=== PATIENT | male | born 1950 | race Caucasian/White ===

== ENCOUNTER → 2016-08-26 | Emergency (ER) | payer BC, OTHER ==
[2016-08-26 10:47] VITALS: BMI 40.6
--- NOTE | 2016-08-26 10:48 | PDOC ---
History of Present Illness - History of Present Illness Initial Comments: 08/26/16 11:09 The patient is a 66 year old male, with a significant past medical history hypertension (controlled), who presents to the emergency department with chest pain for the past few hours today. He states his pain is midsternal, 2/10 in severity, worse when sitting down, and slightly alleviated with standing. He states he can palpate his midsternal region and reproduce pain. He denies ever having a stress test or cardiac work-up in the past. He denies shortness of breath, headache and dizziness. He denies fever, chills, nausea, vomit, diarrhea and constipation. He denies dysuria, frequency, urgency and hematuria. Allergies: NKDA PCP - Dr. Pacheco <Mary Bobo - Last Filed: 08/26/16 12:32> <Cornelio Perera - Last Filed: 08/26/16 12:48> - General Chief Complaint: Chest Pain Stated Complaint: CHEST PAIN Time Seen by Provider: 08/26/16 10:48 Past History <Mary Bobo - Last Filed: 08/26/16 12:32> - Past Medical History Anemia: No Asthma: No Cancer: No Cardiac Disorders: No CVA: No COPD: No CHF: No Dementia: No Diabetes: No GI Disorders: No Disorders: No HTN: Yes Hypercholesterolemia: No Liver Disease: No Seizures: No Thyroid Disease: No - Surgical History Abdominal Surgery: Yes (hernia repair) Appendectomy: No Cardiac Surgery: No Cholecystectomy: No Lung Surgery: No Neurologic Surgery: No Orthopedic Surgery: No - Psycho/Social/Smoking Cessation Hx Anxiety: No Suicidal Ideation: No Smoking Status: No Smoking History: Former smoker Have you smoked in the past 12 months: No Number of Cigarettes Smoked Daily: 0 If you are a former smoker, when did you quit?: 20YRS Information on smoking cessation initiated: No Hx Alcohol Use: No Drug/Substance Use Hx: No Substance Use Type: None <Cornelio Perera - Last Filed: 08/26/16 12:48> - Past Medical History Allergies/Adverse Reactions: Allergies Allergy/AdvReac Type Severity Reaction Status Date / Time No Known Allergies Allergy Verified 08/26/16 10:44 Home Medications: Ambulatory Orders Aspirin [ASA -] 162 mg PO DAILY 01/07/12 Olmesartan Medoxomil [Benicar] 2.5 mg PO DAILY 01/07/12 Review of Systems - Review of Systems Able to Perform ROS?: Yes Comments:: 08/26/16 11:10 GENERAL/CONSTITUTIONAL: No fever or chills. No weakness. HEAD, EYES, EARS, NOSE AND THROAT: No change in vision. No ear pain or discharge. No sore throat. CARDIOVASCULAR: (+) chest pain. No shortness of breath. RESPIRATORY: No cough, wheezing, or hemoptysis. GASTROINTESTINAL: No nausea, vomiting, diarrhea or constipation. GENITOURINARY: No dysuria, frequency, or change in urination. MUSCULOSKELETAL: No joint or muscle swelling or pain. No neck or back pain. SKIN: No rash NEUROLOGIC: No headache, vertigo, loss of consciousness, or change in strength/ sensation. ENDOCRINE: No increased thirst. No abnormal weight change. HEMATOLOGIC/LYMPHATIC: No anemia, easy bleeding, or history of blood clots. ALLERGIC/IMMUNOLOGIC: No hives or skin allergy. <Mary Bobo - Last Filed: 08/26/16 12:32> *Physical Exam - Vital Signs Last Vital Signs Temp Pulse Resp BP Pulse Ox 98.1 F 86 19 164/98 100 08/26/16 10:44 08/26/16 10:44 08/26/16 10:44 08/26/16 10:44 08/26/16 10:44 - Physical Exam Comments: 08/26/16 11:10 GENERAL: Obese. Awake, alert, and fully oriented, in no acute distress HEAD: No signs of trauma EYES: PERRLA, EOMI, sclera anicteric, conjunctiva clear ENT: Auricles normal inspection, hearing grossly normal, nares patent, oropharynx clear without exudates. Moist mucosa NECK: Normal ROM, supple, no lymphadenopathy, JVD, or masses LUNGS: Breath sounds equal, clear to auscultation bilaterally. No wheezes, and no crackles HEART: Regular rate and rhythm, normal S1 and S2, no murmurs, rubs or gallops ABDOMEN: Soft, nontender, normoactive bowel sounds. No guarding, no rebound. No masses EXTREMITIES: Normal range of motion, no edema. No clubbing or cyanosis. No cords, erythema, or tenderness NEUROLOGICAL: Cranial nerves II through XII grossly intact. Normal speech, normal gait SKIN: Warm, Dry, normal turgor, no rashes or lesions noted. <Mary Bobo - Last Filed: 08/26/16 12:32> - Vital Signs Last Vital Signs Temp Pulse Resp BP Pulse Ox 98.1 F 86 19 164/98 100 08/26/16 10:44 08/26/16 10:44 08/26/16 10:44 08/26/16 10:44 08/26/16 10:44 <Cornelio Perera - Last Filed: 08/26/16 12:48> ED Treatment Course - LABORATORY CBC & Chemistry Diagram: 08/26/16 11:18 08/26/16 11:18 <Mary Bobo - Last Filed: 08/26/16 12:32> - LABORATORY CBC & Chemistry Diagram: 08/26/16 11:18 08/26/16 11:18 <Cornelio Perera - Last Filed: 08/26/16 12:48> Medical Decision Making - Medical Decision Making 08/26/16 11:10 The patient is a 66 year old male who presents with midsternal chest pain, 2/10 in severity, constant and nonradiating for the past few hours today. The patients medical history is significant for hypertension. I will obtain CBC, cmp, cardiac profile, CXR to rule out angina 08/26/16 12:10 Dr. Pacheco was called at the office and the patient's case was discussed. He would like the patient to follow-up as outpatient with referral to Dr. Resendiz for cardiology stress test. 08/26/16 12:27 Dr. Resendiz was called at the office and I was informed that Dr. Triana is in the hospital at this time. I have paged Dr. Triana overhead. Dr. Triana immediately returned our page at 12:30 and the patient's case was discussed. I will give the patient the number for outpatient stress test scheduling ). <Mary Bobo - Last Filed: 08/26/16 12:32> *DC/Admit/Observation/Transfer - Attestations Scribe Attestion: 08/26/16 11:10 Documentation prepared by Mayr Bobo, acting as medical orderly for Cornelio Perera MD <Mary Bobo - Last Filed: 08/26/16 12:32> - Discharge Dispostion Admit: No - Attestations Physician Attestion: 08/26/16 10:48 I, Dr. Cornelio Perear, attest that this document has been prepared under my direction and personally reviewed by me in its entirety. I further attest, that it accurately reflects all work, treatment, procedures and medical decision -making performed by me. <Cornelio Perera - Last Filed: 08/26/16 12:48> Diagnosis at time of Disposition: Atypical chest pain - Discharge Dispostion Disposition: HOME Condition at time of disposition: Good - Referrals Referrals: David Pacheco MD [Primary Care Provider] - - Patient Instructions Printed Discharge Instructions: DI for Atypical Chest Pain Additional Instructions: Mr Pierson- Call [phone], they are expecting you to call to set you up for an outpatient stress this week. (This is [facility]) Return to us if any problems. Best- Dr. Cornelio Perera
[2016-08-26 11:26] LABS: BASOPHIL 1.1 % (0-2.0); EOSINOPHIL 4.1 % (0-4.5); MCH 29.6 pg (25.7-33.7); MCHC 33.3 g/dl (32.0-35.9); MEAN PLT VOLUME 9.5 fl (7.5-11.1); NEUTROPHILS 64.2 % (42.8-82.8); PLATELET COUNT 220 K/MM3 (134-434); RDW 14.2 % (11.9-15.9); WHITE BLOOD COUNT 8.9 K/mm3 (4.0-10.0)
[2016-08-26 11:59] LABS: ALBUMIN 3.8 g/dl (3.4-5.0); ANION GAP 9 (8-16); BILIRUBIN,TOTAL 0.5 mg/dL (0.2-1.0); CALCIUM 8.3 mg/dL (8.5-10.1); CO2 27 mmol/L (21-32); CREATININE 0.9 mg/dL (0.7-1.3); GLUCOSE,RANDOM 99 mg/dL (74-106); SGPT/ALT 30 U/L (12-78); TOT PROT 6.8 g/dl (6.4-8.2)
[2016-08-26 12:01] LABS: ALK PHOS 66 U/L (45-117); TROPONIN I < 0.02 ng/ml (0.00-0.05)
[2016-08-26 12:05] LABS: SGOT/AST 21 U/L (15-37)
--- NOTE | 2016-08-26 12:30 | EKG ---
Test Reason : Blood Pressure : / mmHG Vent. Rate : 089 BPM Atrial Rate : 089 BPM P-R Int : 174 ms QRS Dur : 096 ms QT Int : 380 ms P-R-T Axes : 047 -04 046 degrees QTc Int : 462 ms NORMAL SINUS RHYTHM POSSIBLE LEFT ATRIAL ENLARGEMENT BORDERLINE ECG NO PREVIOUS ECGS AVAILABLE Confirmed by ARAM WALLACE, EMILIE ([id number]) on 08/26/2016 12:29:56 PM Referred By: Confirmed By:EMILIE CHIU MD
[2016-08-26 13:05] VITALS: BP 134/80; PULSE 80; TEMP 98.3
== END | disposition home or self-care (01) ==
LOC: JER 10:41
DX: R07.89 Other chest pain (principal); I10 Essential (primary) hypertension
CPT/HCPCS: 36415; 71010-TC; 80053; 82550; 82553; 84484; 85025; 93005; 93010; 99283-25

== ENCOUNTER 2017-04-28 07:34 | Day surgery (SDC) | payer OTHER ==
[2017-04-25 10:45] VITALS: BMI 40.0
[2017-04-28] MEDS ORDERED: LIDOCAINE HCL/PF 2% SDV 5ML VIAL ONE (07:41)
[2017-04-28] MEDS ORDERED: PROPOFOL 20 ML ONE ×2 (07:41)
[2017-04-28 09:06] VITALS: TEMP 97.6
[2017-04-28 09:29] VITALS: BP 110/74; PULSE 76
--- NOTE | 2017-04-29 15:17 | PATH ---
Surgical Pathology Report Patient Name: JOHNNA MEIER [facility]. Rec. #: [id number] /Age/Gender: 1950 (Age: 67) / M Account: [id number] Location: [facility]-ENDOSCOPY Taken: 04/28/2017 Received: 04/28/2017 Reported: 04/29/2017 Physicians: David Yanes M.D. Specimen(s) Received A: BX 35CM COLON B: BX RECTO SIGMOID Clinical History Preoperative diagnosis: History of polyps Postoperative diagnosis: Polyps Final Diagnosis A. COLON, 35 CM, BIOPSY: TUBULAR ADENOMA. B. RECTOSIGMOID COLON, BIOPSY: HYPERPLASTIC POLYP. Electronically Signed Annabel Quintanilla M.D. Gross Description A. Received in formalin, labeled "35 cm" are 2 burrows, polypoid portions of soft tissue measuring 0.5 and 0.8 cm. in greatest dimension. The specimens are submitted in toto in one cassette. B. Received in formalin, labeled "rectosigmoid" is a burrows, irregular portion of soft tissue measuring 0.3 cm. in greatest dimension. The specimen is submitted in toto in one cassette. DL/04/28/2017 saudi04/28/2017
== END 2017-04-28 09:25 | disposition home or self-care (01) ==
LOC: FASU-ENDO 07:34
PROVIDERS: ATTEND Internal Medicine Gastroenterology
PROC: 0DBN8ZX Excision of Sigmoid Colon, Via Natural or Artificial Opening Endoscopic, Diagnostic (ICD-10-PCS; principal; 2017-04-28 08:35)
PROC: 0DBN8ZX Excision of Sigmoid Colon, Via Natural or Artificial Opening Endoscopic, Diagnostic (ICD-10-PCS; 2017-04-28 08:35)
DX: Z86.010 Personal history of colon polyps (principal); D12.5 Benign neoplasm of sigmoid colon; K63.5 Polyp of colon; K57.30 Diverticulosis of large intestine without perforation or abscess without bleeding
CPT/HCPCS: 88305-TC

== ENCOUNTER 2017-11-12 05:11 | Emergency (ER) | payer OTHER ==
--- NOTE | 2017-11-12 05:26 | PDOC ---
History of Present Illness - History of Present Illness Initial Comments: 11/12/17 05:40 67M with PMHx HTN, ex-smoker p/w cc of epigastric pain which he awoke with this morning approx 4hrs prior to arrival. +nausea and feeling occasionally diaphoretic. No true chest pain, no SOB. Does not recall similar pain in the past. Was seen in 2017 for CP, saw outpt cards after the visit and had a neg stress test, per pt. Ate an hebrew sub with milk before bed, does not usually drink milk. No diarrhea, no vomiting. No fever/chills. <Tayler Sanford - Last Filed: 11/12/17 06:20> <Brandon Krueger - Last Filed: 11/12/17 10:44> - General Chief Complaint: Chest Pain Stated Complaint: CHEST PAIN,BLOATING Time Seen by Provider: 11/12/17 05:26 Past History - Past Medical History Anemia: No Asthma: No Cancer: No Cardiac Disorders: No CVA: No COPD: No CHF: No Dementia: No Diabetes: No GI Disorders: No Disorders: No HTN: Yes Hypercholesterolemia: No Liver Disease: No Seizures: No Thyroid Disease: No - Surgical History Abdominal Surgery: Yes (hernia repair) Appendectomy: No Cardiac Surgery: No Cholecystectomy: No Lung Surgery: No Neurologic Surgery: No Orthopedic Surgery: No - Suicide/Smoking/Psychosocial Hx Smoking Status: No Smoking History: Former smoker Have you smoked in the past 12 months: No Number of Cigarettes Smoked Daily: 0 If you are a former smoker, when did you quit?: 1996 Hx Alcohol Use: Yes (SOCIAL) Drug/Substance Use Hx: No Substance Use Type: None Hx Substance Use Treatment: No <Tayler Sanford - Last Filed: 11/12/17 06:20> <Brandon Krueger - Last Filed: 11/12/17 10:44> - Past Medical History Allergies/Adverse Reactions: Allergies Allergy/AdvReac Type Severity Reaction Status Date / Time No Known Allergies Allergy Verified 11/12/17 05:18 Home Medications: Ambulatory Orders Aspirin [ASA -] 162 mg PO DAILY 01/07/12 Olmesartan Medoxomil [Benicar] 2.5 mg PO DAILY 01/07/12 Pantoprazole Sodium 40 mg PO DAILY #10 tablet. 11/12/17 *Physical Exam - Physical Exam Comments: 11/12/17 05:42 Gen: middle aged man in NAD, sitting on stretcher Clear lungs RRR, s1s2 Abd: +tnd to epigastrum and RUQ, no guarding/rebound Chest wall:no reproducible CP LE: 1+ pitting edema bilat, no LE tnd to palpation No rash AOx3, alert, pleasant, no focal neuro deficits <Tayler Sanford - Last Filed: 11/12/17 06:20> - Vital Signs Last Vital Signs Temp Pulse Resp BP Pulse Ox 97.9 F 73 18 158/92 99 11/12/17 05:21 11/12/17 05:21 11/12/17 05:21 11/12/17 05:21 11/12/17 05:21 <Brandon Krueger - Last Filed: 11/12/17 10:44> ED Treatment Course - LABORATORY CBC & Chemistry Diagram: 11/12/17 05:40 11/12/17 05:40 <Tayler Sanford - Last Filed: 11/12/17 06:20> - LABORATORY CBC & Chemistry Diagram: 11/12/17 05:40 11/12/17 05:40 - ADDITIONAL ORDERS Additional order review: Laboratory Results 11/12/17 11/12/17 05:40 05:40 Sodium 137 Potassium 4.2 Chloride 101 Carbon Dioxide 24 Anion Gap 12 BUN 17 D Creatinine 1.0 Creat Clearance w eGFR > 60 Random Glucose 141 H D Calcium 8.7 Total Bilirubin 0.4 AST 22 ALT 35 Alkaline Phosphatase 68 Creatine Kinase 273 Cancelled Troponin I < 0.02 B-Natriuretic Peptide 95.44 Total Protein 7.5 Albumin 4.0 Lipase 160 11/12/17 05:40 RBC 4.61 MCV 90.3 MCHC 34.1 RDW 14.0 MPV 9.1 Neutrophils % 76.9 Lymphocytes % 13.2 Monocytes % 7.1 Eosinophils % 2.4 Basophils % 0.4 - Medications Given in the ED: ED Medications Discontinued Medications Generic Name Dose Route Start Last Admin Trade Name Freq PRN Reason Stop Dose Admin Acetaminophen 975 mg 11/12/17 06:02 11/12/17 06:13 Tylenol - PO 11/12/17 06:03 Not Given ONCE ONE Acetaminophen 1,000 mg 11/12/17 06:12 11/12/17 06:13 Ofirmev Injection - IVPB 11/12/17 06:13 1,000 mg ONCE ONE Administration Al Hydroxide/Mg Hydroxide 30 ml 11/12/17 05:39 11/12/17 05:48 Mylanta Oral Suspension - PO 11/12/17 05:40 30 ml ONCE ONE Administration Aspirin 162 mg 11/12/17 05:39 11/12/17 05:48 Asa - PO 11/12/17 05:40 162 mg ONCE ONE Administration Famotidine/Sodium Chloride 20 mg in 50 mls @ 100 mls/hr 11/12/17 05:39 05:48 Pepcid 20 Mg Premixed Ivpb - IVPB 11/12/17 06:08 100 mls/hr ONCE ONE Administration Morphine Sulfate 4 mg 11/12/17 06:41 11/12/17 06:55 Morphine Sulfate IVPUSH 11/12/17 06:42 4 mg Q4H ONE Administration Ondansetron HCl 4 mg 11/12/17 05:55 11/12/17 06:00 Zofran Injection IVPUSH 11/12/17 05:56 4 mg ONCE ONE Administration <Brandon Krueger - Last Filed: 11/12/17 10:44> Medical Decision Making - Medical Decision Making 11/12/17 05:46 67M with epigastric/RUQ pain with associated nausea and diaphoresis, onset 4hrs prior to arrival. Ddx includes ACS, pancreatitis, gastritis, cholecystitis, LL pna. - labs including cardiac enzymes - EKG - CXR - asa, pepcid, maalox - reassess 11/12/17 06:20 Pt tender in RUQ, unable to obtain clear views of gallbladder with bedside US. Pt reports hx of a large liver cyst and hx of gallstones. I do visualize a hypoechoic structure near the liver, but unclear based on US view whether this is a cyst. Official abd US - RUQ and aorta - ordered, called tech at 6am. <Tayler Sanford - Last Filed: 11/12/17 06:20> *DC/Admit/Observation/Transfer <Tayler Sanford - Last Filed: 11/12/17 06:20> <Brandon Krueger - Last Filed: 11/12/17 10:44> Diagnosis at time of Disposition: GERD (gastroesophageal reflux disease) - Discharge Dispostion Disposition: HOME Condition at time of disposition: Improved - Prescriptions Prescriptions: Pantoprazole Sodium 40 mg PO DAILY #10 tablet.dr - Referrals Referrals: David Yanes MD [Staff Physician] - 1 week - Patient Instructions Printed Discharge Instructions: DI for Gastroesophageal Reflux Disease (GERD) Additional Instructions: Avoid eating for several hours before going to bed Medication for 1 week as directed Consider consultation with [facility] reactor operator head Dr. Yanes if symptoms recur If symptoms worsen severe or other additional symptoms develop, return to ER for further evaluation and treatment. - Post Discharge Activity
[2017-11-12 05:30] VITALS: BMI 40.0
[2017-11-12] MEDS ORDERED: FAMOTIDINE 20 MG/50 ML IVPB 20 MG/50 ML MG IVPB ONE ×2 (05:39→05:43)
[2017-11-12] MEDS ORDERED: ASPIRIN 81 MG CHEWABLE TABLETS PO ONE (05:39)
[2017-11-12] MEDS ORDERED: MAG HYDROX/AL HYDROX/SIMETH 30 ML UNIT-DOSE CUP PO ONE (05:39)
[2017-11-12] MEDS ORDERED: ASPIRIN 81 MG CHEWABLE TABLETS ONE (05:43)
[2017-11-12] MEDS ORDERED: MAG HYDROX/AL HYDROX/SIMETH 30 ML UNIT-DOSE CUP ONE (05:43)
[2017-11-12] MEDS ORDERED: ONDANSETRON 4 MG/2 ML VIAL IVPUSH ONE (05:55)
[2017-11-12] MEDS ORDERED: ONDANSETRON 4 MG/2 ML VIAL ONE (05:56)
[2017-11-12] MEDS ORDERED: ACETAMINOPHEN 325 MG TABLET (FP) PO ONE (06:02)
[2017-11-12] MEDS ORDERED: ACETAMINOPHEN INJECTION 100 ML IVPB ONE (06:09)
[2017-11-12] MEDS ORDERED: ACETAMINOPHEN 1000 MG/100 ML VIAL (NON FORMULARY) IVPB ONE (06:12)
[2017-11-12 06:24] LABS: HEMATOCRIT 41.6 % (35.4-49); HEMOGLOBIN 14.2 GM/dl (11.7-16.9); MEAN CELL VOLUME 90.3 fl (80-96); RBC 4.61 M/mm3 (4.00-5.60); WHITE BLOOD COUNT 10.7 K/mm3 (4.0-10.8)
[2017-11-12 06:25] LABS: BASO % 0.4 % (0-2.0); EOS % 2.4 % (0-4.5); LYMPH % 13.2 % (8-40); MCH 30.8 pg (25.7-33.7); MCHC 34.1 g/dl (32.0-35.9); MEAN PLT VOLUME 9.1 fl (7.5-11.1); MONO % 7.1 % (3.8-10.2); NEUT % 76.9 % (42.8-82.8); PLATELET COUNT 264 K/MM3 (134-434)
[2017-11-12] MEDS ORDERED: morphine SULFATE 4 MG/ML VIAL IVPUSH ONE (06:41)
[2017-11-12] MEDS ORDERED: morphine SULFATE 4 MG/ML VIAL ONE (06:43)
[2017-11-12 06:44] LABS: ANION GAP 12 (8-16); BLOOD UREA NITROGEN 17 mg/dL (7-18); CALCIUM 8.7 mg/dL (8.5-10.1); CHLORIDE 101 mmol/L (98-107); CO2 24 mmol/L (21-32); GLUCOSE,RANDOM 141 mg/dL (74-106); LIPASE 160 U/L (73-393); POTASSIUM 4.2 mmol/L (3.5-5.1); SGOT/AST 22 U/L (15-37); SGPT/ALT 35 U/L (12-78); SODIUM 137 mmol/L (136-145)
[2017-11-12 06:48] LABS: ALK PHOS 68 U/L (45-117); BILIRUBIN,TOTAL 0.4 mg/dL (0.2-1.0); N-TERMINAL BNP 95.44 pg/ml (5-125); TOT PROT 7.5 g/dl (6.4-8.2)
[2017-11-12] MEDS ORDERED: PANTOPRAZOLE SODIUM 40 MG in SODIUM CHLORIDE 100 ML IVPB ONE (07:52)
[2017-11-12] MEDS ORDERED: PANTOPRAZOLE SODIUM 40 MG VIAL ONE (07:55)
--- NOTE | 2017-11-12 08:12 | PDOC ---
*Physical Exam - Vital Signs Last Vital Signs Temp Pulse Resp BP Pulse Ox 97.9 F 73 18 158/92 99 11/12/17 05:21 11/12/17 05:21 11/12/17 05:21 11/12/17 05:21 11/12/17 05:21 - Physical Exam Comments: 11/12/17 08:05 Old EKG was retrieved and is dated 08/26/2016. The EKG is essentially unchanged except for the solitary PVC noted in the new tracing. The patient reportedly had a stress test within the year and it was negative. This makes a cardiac origin but less likely. Ultrasound shows dilated gallbladder with stones, which has been present for some time. The patient has absolutely no right upper quadrant tenderness to palpation and negative Zimmerman sign. Also, there is no obvious sign of inflammation on the ultrasound. Therefore cholecystitis is unlikely The patient describes the pain as primarily epigastric, sharp, but does not radiate through to the back. It occurred at 2 AM after he had been lying down for some time. There is a burning quality to the pain, and originally there was the sensation that he needed to belch, and this might relieve the pain. However , there was no real nausea. At present, the pain is much improved. The only present sensation as the epigastric burning and fullness. Primary consideration must be severe dyspepsia or GERD. The patient received Pepcid and oral antacids. Trial of Protonix now. Further observation. 11/12/17 10:08 Discomfort is completely resolved after Protonix. Patient is ambulatory in no pain or other distress. Repeat EKG and enzymes negative. Treatment for dyspepsia /GERD and follow-up if symptoms persist or worsen. Cardiac symptoms were again reviewed with the patient and instructed to return to ER if any sign of heart symptoms. He appears to agree and understand. ED Treatment Course - LABORATORY CBC & Chemistry Diagram: 11/12/17 05:40 11/12/17 05:40 - ADDITIONAL ORDERS Additional order review: Laboratory Results 11/12/17 11/12/17 05:40 05:40 Sodium 137 Potassium 4.2 Chloride 101 Carbon Dioxide 24 Anion Gap 12 BUN 17 D Creatinine 1.0 Creat Clearance w eGFR > 60 Random Glucose 141 H D Calcium 8.7 Total Bilirubin 0.4 AST 22 ALT 35 Alkaline Phosphatase 68 Creatine Kinase 273 Cancelled Troponin I < 0.02 B-Natriuretic Peptide 95.44 Total Protein 7.5 Albumin 4.0 Lipase 160 11/12/17 05:40 RBC 4.61 MCV 90.3 MCHC 34.1 RDW 14.0 MPV 9.1 Neutrophils % 76.9 Lymphocytes % 13.2 Monocytes % 7.1 Eosinophils % 2.4 Basophils % 0.4 - Medications Given in the ED: ED Medications Discontinued Medications Generic Name Dose Route Start Last Admin Trade Name Blanca PRN Reason Stop Dose Admin Acetaminophen 975 mg 11/12/17 06:02 11/12/17 06:13 Tylenol - PO 11/12/17 06:03 Not Given ONCE ONE Acetaminophen 1,000 mg 11/12/17 06:12 11/12/17 06:13 Ofirmev Injection - IVPB 11/12/17 06:13 1,000 mg ONCE ONE Administration Al Hydroxide/Mg Hydroxide 30 ml 11/12/17 05:39 11/12/17 05:48 Mylanta Oral Suspension - PO 11/12/17 05:40 30 ml ONCE ONE Administration Aspirin 162 mg 11/12/17 05:39 11/12/17 05:48 Asa - PO 11/12/17 05:40 162 mg ONCE ONE Administration Famotidine/Sodium Chloride 20 mg in 50 mls @ 100 mls/hr 11/12/17 05:39 05:48 Pepcid 20 Mg Premixed Ivpb - IVPB 11/12/17 06:08 100 mls/hr ONCE ONE Administration Morphine Sulfate 4 mg 11/12/17 06:41 11/12/17 06:55 Morphine Sulfate IVPUSH 11/12/17 06:42 4 mg Q4H ONE Administration Ondansetron HCl 4 mg 11/12/17 05:55 11/12/17 06:00 Zofran Injection IVPUSH 11/12/17 05:56 4 mg ONCE ONE Administration *DC/Admit/Observation/Transfer Diagnosis at time of Disposition: GERD (gastroesophageal reflux disease) Qualifiers: Esophagitis presence: without esophagitis Qualified Code(s): K21.9 - Gastro- esophageal reflux disease without esophagitis - Discharge Dispostion Disposition: HOME Condition at time of disposition: Improved Decision to Admit order: No - Prescriptions Prescriptions: Pantoprazole Sodium 40 mg PO DAILY #10 tablet.dr - Referrals Referrals: David Yanes MD [Staff Physician] - 1 week - Patient Instructions Printed Discharge Instructions: DI for Gastroesophageal Reflux Disease (GERD) Additional Instructions: Avoid eating for several hours before going to bed Medication for 1 week as directed Consider consultation with bronze chaser Dr. Yanes if symptoms recur If symptoms worsen severe or other additional symptoms develop, return to ER for further evaluation and treatment. - Post Discharge Activity
[2017-11-12 09:31] VITALS: BP 149/82; PULSE 70; TEMP 98.7
--- NOTE | 2017-11-13 11:14 | EKG ---
Test Reason : Blood Pressure : / mmHG Vent. Rate : 069 BPM Atrial Rate : 069 BPM P-R Int : 164 ms QRS Dur : 098 ms QT Int : 410 ms P-R-T Axes : 010 -02 044 degrees QTc Int : 439 ms NORMAL SINUS RHYTHM INFERIOR INFARCT , AGE UNDETERMINED ABNORMAL ECG WHEN COMPARED WITH ECG OF 12-NOV-2017 05:27, PREMATURE VENTRICULAR COMPLEXES ARE NO LONGER PRESENT INFERIOR INFARCT IS NOW PRESENT Confirmed by BETHANIE WALLACE, ELHAM ([id number]) on 11/13/2017 11:13:42 AM Referred By: OBDULIO RYAN Confirmed By:ELHAM KOVACS MD
--- NOTE | 2017-11-15 17:49 | EKG ---
Test Reason : Blood Pressure : / mmHG Vent. Rate : 072 BPM Atrial Rate : 072 BPM P-R Int : 154 ms QRS Dur : 100 ms QT Int : 426 ms P-R-T Axes : 000 -05 041 degrees QTc Int : 466 ms SINUS RHYTHM WITH OCCASIONAL PREMATURE VENTRICULAR COMPLEXES NONSPECIFIC ST ABNORMALITY ABNORMAL ECG WHEN COMPARED WITH ECG OF 26-AUG-2016 10:50, PREMATURE VENTRICULAR COMPLEXES ARE NOW PRESENT Confirmed by JOCELYN WALLACE, MAX ([id number]) on 11/15/2017 5:49:07 PM Referred By: MD STONE Confirmed By:MAX BANKS MD
== END 2017-11-12 10:17 | disposition home or self-care (01) ==
LOC: FER 05:11
PROC: 3E033NZ Introduction of Analgesics, Hypnotics, Sedatives into Peripheral Vein, Percutaneous Approach (ICD-10-PCS; principal; 2017-11-12)
PROC: 3E033GC Introduction of Other Therapeutic Substance into Peripheral Vein, Percutaneous Approach (ICD-10-PCS; 2017-11-12)
DX: K21.9 Gastro-esophageal reflux disease without esophagitis (principal); Z87.891 Personal history of nicotine dependence; I10 Essential (primary) hypertension
CPT/HCPCS: 36415; 71045-TC-FY; 76705-TC; 76775-TC; 80053; 82550; 82553; 83690; 83880; 84484; 85025; 93005; 99283-25; J0131

== ENCOUNTER 2019-08-29 05:50 | Emergency (ER) | payer OTHER, BC ==
[2019-08-29 05:57] VITALS: BP 124/62; PULSE 77; TEMP 98; BMI 35.9
--- NOTE | 2019-08-29 05:57 | PDOC ---
History of Present Illness - General Chief Complaint: Chest Pain Stated Complaint: CHEST PAIN Time Seen by Provider: 08/29/19 05:54 - History of Present Illness Initial Comments: 08/29/19 06:15 This 69-year-old man with a history of HTN/GERD presents with several hour history of burning epigastric pain, followed by mild substernal chest discomfort for the last hour. Patient had mild nausea associated with the burning pain; na usea has resolved. No shortness of breath, arm/jaw pain, diaphoresis. Patient was comfortable when he was about to go to sleep but began to feel discomfort when lying down. Within an hour, he had significant dyspepsia; at that point, he took an OTC "heartburn pill" (patient unsure of identity of the medication). He continued to have the dyspepsia for several more hours while he walked around and drank water. At approximately 4 AM, dyspepsia resolved but he continued to have mild substernal chest discomfort. Patient ate ribs and fried plantain for dinner last night. He states he has not had fried plantain in "quite a while". Patient had similar episode (and was seen here) approximately 2 years ago. Cardiac work-up was negative and symptoms resolved after IV Protonix. Patient states that since then, he occasionally gets heartburn which resolves quickly with his "heartburn pill". He has not followed up with any rigging up man since that episode. Approximately 3 years ago, the patient was seen by hotel desk clerk and stress test was negative at that time. Risk factors: Positive for hypertension/obesity; ex-smoker (quit many years ago). Negative for HLD, strong family history or DM No history of cough/fever or known text with covered patients. No recent travel. 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) and has been avoiding large crowds Medications as noted below No known allergies Past History - Past Medical History Allergies/Adverse Reactions: Allergies Allergy/AdvReac Type Severity Reaction Status Date / Time No Known Allergies Allergy Verified 11/12/17 05:18 Home Medications: Ambulatory Orders Olmesartan Medoxomil [Benicar] 2.5 mg PO DAILY 01/07/12 Tamsulosin HCl [Flomax] 0.4 mg PO DAILY 08/29/19 Anemia: No Asthma: No Cancer: No Cardiac Disorders: No CVA: No COPD: No CHF: No Dementia: No Diabetes: No GI Disorders: No Disorders: No HTN: Yes Hypercholesterolemia: No Liver Disease: No Seizures: No Thyroid Disease: No - Surgical History Abdominal Surgery: Yes (hernia repair) Appendectomy: No Cardiac Surgery: No Cholecystectomy: No Lung Surgery: No Neurologic Surgery: No Orthopedic Surgery: No - Psycho Social/Smoking Cessation Hx Smoking Status: No Smoking History: Smoker current status UNK Have you smoked in the past 12 months: No Number of Cigarettes Smoked Daily: 0 If you are a former smoker, when did you quit?: 1996 Information on smoking cessation initiated: No Hx Alcohol Use: Yes (SOCIAL) Drug/Substance Use Hx: No Substance Use Type: None Hx Substance Use Treatment: No Review of Systems - Review of Systems Able to Perform ROS?: Yes Comments:: 12 point review of systems is negative except for what is noted in the history of present illness *Physical Exam - Vital Signs Last Vital Signs Temp Pulse Resp BP Pulse Ox 98 F 77 18 124/62 99 08/29/19 05:53 08/29/19 05:53 08/29/19 05:53 08/29/19 05:53 08/29/19 05:53 - Physical Exam GENERAL: Adult male, alert and oriented x3, no acute distress HEAD: Normal with no signs of trauma. EYES: PERRLA, EOMI, sclera anicteric, conjunctiva clear. ENT: Ears normal, nares patent, oropharynx clear without exudates. Moist mucous membranes. NECK: Normal range of motion, supple without lymphadenopathy, JVD, or masses. LUNGS: Breath sounds equal, clear to auscultation bilaterally. No wheezes, and no crackles.; No chest wall tenderness HEART:Regular rate and rhythm, normal S1 and S2 without murmur, rub or gallop. ABDOMEN:.normal bowel sounds No guarding,tenderness or rebound.No masses No distention. EXTREMITIES: Normal range of motion, no edema. No clubbing or cyanosis. No erythema, or tenderness. NEUROLOGICAL: Cranial nerves II through XII grossly intact. Normal speech. No focal neurological deficits. MUSCULOSKELETAL: Back non-tender to palpation, no CVA tenderness SKIN: Warm, Dry, normal turgor, no rashes or lesions noted. Twelve-lead electrocardiogram performed: Sinus rhythm with frequent PVCs at 77 bpm. [place], intervals and waveforms are normal. No evidence of acute ST or T wave abnormalities. Tracing is unchanged from one dated 11/12/2017 (PVCs were noted then also) ED Treatment Course - LABORATORY CBC & Chemistry Diagram: 08/29/19 06:20 08/29/19 06:20 Medical Decision Making - Medical Decision Making This 69-year-old man with a history of hypertension/GERD presents with a few hour history of burning epigastric pain associated with mild, self resolving nausea followed by substernal chest discomfort. No other associated symptoms. Patient has a history of GERD; he does not take any H2 amarjit or PPI on a daily basis but treats episodes of dyspepsia with an [id number] "heartburn pill". He has 2 risk factors for coronary artery disease (HTN/obesity). He reportedly had a negative stress test approximately 3 years ago but has not been seen by cardiology since then. Exam as noted with clear lungs, normal cardiac exam and nontender abdomen. Twelve-lead electrocardiogram is unchanged from 2018 Differential diagnosis includes but is not limited to GERD/gastritis with esophagitis, peptic ulcer disease, early gastroenteritis, myocardial ischemia/infarct CBC/chemistry profile/troponin sent Protonix 40 mg IV given Case signed out to Dr Del Valle at end of shift Discharge - Discharge Information Problems reviewed: Yes Clinical Impression/Diagnosis: GERD (gastroesophageal reflux disease) Qualifiers: Esophagitis presence: with esophagitis Qualified Code(s): K21.0 - Gastro- esophageal reflux disease with esophagitis Condition: Stable Disposition: HOME - Follow up/Referral Referrals: Bashir Thomas MD [Primary Care Provider] - - Patient Discharge Instructions Patient Printed Discharge Instructions: DI for Atypical Chest Pain, DI for Dyspepsia Additional Instructions: Fluids, rest Pepcid OTC daily Follow up with Senior Vice President If worsen return to ER - Post Discharge Activity
[2019-08-29] MEDS ORDERED: PANTOPRAZOLE SODIUM 40 MG VIAL IVPUSH ONE (06:15)
[2019-08-29] MEDS ORDERED: PANTOPRAZOLE SODIUM 40 MG VIAL ONE (06:26)
--- NOTE | 2019-08-29 07:12 | PDOC ---
History of Present Illness - General Chief Complaint: Chest Pain Stated Complaint: CHEST PAIN Time Seen by Provider: 08/29/19 05:54 History Source: Patient Exam Limitations: No Limitations - History of Present Illness Initial Comments: 08/29/19 07:07 69 y/o male presents with mild substernal chest pain. Took OTC medication for his dyspepsia. Feeling better with chest pain but heart burn returning. No back pain or arm or jaw pain. No vomiting. Given IV Protonix in ER. Seen initially by Dr. Grey. Cardiac work up a few years ago was negative. Awaiting labs. Patient with hx of dyspepsia. Stated at 11 pm last night, went away. Now has returned. 08/29/19 07:27 Past History - Past Medical History Allergies/Adverse Reactions: Allergies Allergy/AdvReac Type Severity Reaction Status Date / Time No Known Allergies Allergy Verified 11/12/17 05:18 Home Medications: Ambulatory Orders Olmesartan Medoxomil [Benicar] 2.5 mg PO DAILY 01/07/12 Tamsulosin HCl [Flomax] 0.4 mg PO DAILY 08/29/19 Anemia: No Asthma: No Cancer: No Cardiac Disorders: No CVA: No COPD: No CHF: No Dementia: No Diabetes: No GI Disorders: No Disorders: No HTN: Yes Hypercholesterolemia: No Liver Disease: No Seizures: No Thyroid Disease: No - Surgical History Abdominal Surgery: Yes (hernia repair) Appendectomy: No Cardiac Surgery: No Cholecystectomy: No Lung Surgery: No Neurologic Surgery: No Orthopedic Surgery: No - Psycho Social/Smoking Cessation Hx Smoking Status: No Smoking History: Smoker current status UNK Have you smoked in the past 12 months: No Number of Cigarettes Smoked Daily: 0 If you are a former smoker, when did you quit?: 1996 Information on smoking cessation initiated: No Hx Alcohol Use: Yes (SOCIAL) Drug/Substance Use Hx: No Substance Use Type: None Hx Substance Use Treatment: No Cardiac Specific PMH - Complaint Specific PMHX Pacemaker: No Review of Systems - Review of Systems Able to Perform ROS?: Yes Is the patient limited [place] proficient: No Constitutional: No: Chills, Fever Respiratory: No: Cough, Shortness of Breath Cardiac (ROS): Yes: Chest Pain ABD/GI: Yes: Indigestion. No: Vomiting Musculoskeletal: No: Back Pain All Other Systems: Reviewed and Negative *Physical Exam - Vital Signs Last Vital Signs Temp Pulse Resp BP Pulse Ox 98 F 77 18 124/62 99 08/29/19 05:53 08/29/19 05:53 08/29/19 05:53 08/29/19 05:53 08/29/19 05:53 - Physical Exam General Appearance: Yes: Nourished, Appropriately Dressed. No: Apparent Distress HEENT: positive: KEVIN, Normal ENT Inspection, Normal Voice Neck: positive: Trachea midline, Normal Thyroid, Supple. negative: Tender, Rigid Respiratory/Chest: positive: Lungs Clear, Normal Breath Sounds. negative: Chest Tender, Respiratory Distress Cardiovascular: positive: Regular Rhythm, Regular Rate, S1, S2. negative: Edema, JVD, Murmur Vascular Pulses: Femoral (R): 4+, Femoral (L): 4+, Carotid (R): 4+, Carotid (L): 4+, Dorsalis-Pedis (R): 4+, Doralis-Pedis (L): 4+ Gastrointestinal/Abdominal: positive: Normal Bowel Sounds, Flat, Soft. negative: Tender (No RUQ or LUQ tenderness +BS No RLQ or LLQ tenderness), Organomegaly, Pulsatile Mass Lymphatic: negative: Adenopathy, Tenderness, Other Musculoskeletal: positive: Normal Inspection. negative: CVA Tenderness Extremity: positive: Normal Capillary Refill, Normal Inspection, Normal Range of Motion Integumentary: positive: Normal Color, Dry, Warm Neurologic: positive: shock absorber installer II-XII NML intact, Fully Oriented, Alert, Normal Mood/Affect, Normal Response, Motor Strength 5/5 Heart Score/ECG Review - History History: Slightly suspicious - Electrocardiogram EKG: Normal - Age Age: >/= 65 - Risk Factors Risk Factors Heart Score: Yes Hx Hypertension Based on the list above the patient has:: 1-2 risk factors - Troponin Troponin: </= normal limit - Score Heart Score - Total: 3 - ECG Impressions Normal ECG: Yes Non-specific ST Elevation: No Comment:: 08/29/19 07:12 HR 77 NSR with PVC, no STEMI, unchanged from11/12/2017 ED Treatment Course - LABORATORY CBC & Chemistry Diagram: 08/29/19 06:20 08/29/19 06:20 - ADDITIONAL ORDERS Additional order review: Laboratory Results 08/29/19 06:20 Sodium 136 Potassium 3.9 Chloride 98 Carbon Dioxide 28 Anion Gap 10 BUN 15.9 Creatinine 1.0 Est GFR (CKD-EPI)AfAm 89.23 Est GFR (CKD-EPI)NonAf 76.99 Random Glucose 125 H Calcium 8.7 Total Bilirubin 0.3 AST 16 ALT 23 Alkaline Phosphatase 73 Creatine Kinase 159 Troponin I < 0.02 Total Protein 7.4 Albumin 4.0 08/29/19 06:20 RBC 4.68 MCV 90.1 MCHC 33.3 RDW 14.4 MPV 9.3 Neutrophils % 80.1 D Lymphocytes % 11.6 D Monocytes % 6.7 Eosinophils % 1.1 Basophils % 0.5 - RADIOLOGY Radiology Studies Ordered: CXR unchanged from prior NAD Patient is feeling better, no chest pain Labs negative with negative Troponin. Advised pt to take Pepcid OTC, if worsen to return to ER Follow up with Truck Mechanic Patient wishes to go home at this time. - Medications Given in the ED: ED Medications Discontinued Medications Generic Name Dose Route Start Last Admin Trade Name Freq PRN Reason Stop Dose Admin Al Hydroxide/Mg Hydroxide 30 ml 08/29/19 07:28 08/29/19 07:31 Mylanta Oral Suspension - PO 08/29/19 07:29 30 ml ONCE ONE Administration Pantoprazole Sodium 40 mg 08/29/19 06:15 08/29/19 06:29 Protonix Iv IVPUSH 08/29/19 06:16 40 mg ONCE ONE Administration Discharge - Discharge Information Problems reviewed: Yes Clinical Impression/Diagnosis: GERD (gastroesophageal reflux disease) Qualifiers: Esophagitis presence: with esophagitis Qualified Code(s): K21.0 - Gastro- esophageal reflux disease with esophagitis Condition: Stable Disposition: HOME - Admission No - Follow up/Referral Referrals: Bashir Thomas MD [Primary Care Provider] - - Patient Discharge Instructions Patient Printed Discharge Instructions: DI for Atypical Chest Pain, DI for Dyspepsia Additional Instructions: Fluids, rest Pepcid OTC daily Follow up with Truck Mechanic If worsen return to ER - Post Discharge Activity
[2019-08-29] MEDS ORDERED: MAG HYDROX/AL HYDROX/SIMETH 30 ML UNIT-DOSE CUP PO ONE (07:28)
[2019-08-29] MEDS ORDERED: MAG HYDROX/AL HYDROX/SIMETH 30 ML UNIT-DOSE CUP ONE (07:30)
[2019-08-29 08:02] LABS: BASO % 0.5 % (0-2.0); EOS % 1.1 % (0-4.5); HEMATOCRIT 42.1 % (35.4-49); LYMPH % 11.6 % (8-40); MCHC 33.3 g/dl (32.0-35.9); MEAN CELL VOLUME 90.1 fl (80-96); MEAN PLT VOLUME 9.3 fl (7.5-11.1); MONO % 6.7 % (3.8-10.2); NEUT % 80.1 % (42.8-82.8); PLATELET COUNT 265 K/MM3 (134-434); RBC 4.68 M/mm3 (4.00-5.60); RDW 14.4 % (11.9-15.9); WHITE BLOOD COUNT 14.1 K/mm3 (4.0-10.0)
[2019-08-29 08:23] LABS: ALK PHOS 73 U/L (45-117); ANION GAP 10 MMOL/L (8-16); BILIRUBIN,TOTAL 0.3 mg/dL (0.2-1); BLOOD UREA NITROGEN 15.9 mg/dL (7-18); CALCIUM 8.7 mg/dL (8.5-10.1); CHLORIDE 98 mmol/L (98-107); CO2 28 mmol/L (21-32); GLUCOSE,RANDOM 125 mg/dL (74-106); POTASSIUM 3.9 mmol/L (3.5-5.1); SGOT/AST 16 U/L (15-37); SGPT/ALT 23 U/L (13-61); SODIUM 136 mmol/L (136-145); TOT PROT 7.4 g/dl (6.4-8.2)
--- NOTE | 2019-08-30 14:23 | EKG ---
Test Reason : Blood Pressure : / mmHG Vent. Rate : 077 BPM Atrial Rate : 077 BPM P-R Int : 154 ms QRS Dur : 102 ms QT Int : 414 ms P-R-T Axes : 056 009 053 degrees QTc Int : 468 ms SINUS RHYTHM WITH FREQUENT PREMATURE VENTRICULAR COMPLEXES OTHERWISE NORMAL ECG WHEN COMPARED WITH ECG OF 12-NOV-2017 09:00, PREMATURE VENTRICULAR COMPLEXES ARE NOW PRESENT Confirmed by ARAM WALLACE, EMILIE ([id number]) on 08/30/2019 2:23:07 PM Referred By: DR TIRADO Confirmed By:EMILIE CHIU MD
== END 2019-08-29 08:37 | disposition home or self-care (01) ==
LOC: FER 05:50
DX: K21.0 Gastro-esophageal reflux disease with esophagitis (principal)
CPT/HCPCS: 36415; 71045-TC-FY; 80053; 82550; 82553; 84484; 85025; 93005; 99285-25

== ENCOUNTER 2022-05-15 07:42 | Day surgery (SDC) | payer OTHER, MEDICARE ==
[2022-05-14 16:11] VITALS: BMI 36.6
[2022-05-15 08:06] VITALS: RESP 20
[2022-05-15 09:53] VITALS: TEMP 97.8
[2022-05-15 10:06] VITALS: BP 111/60; PULSE 82
== END 2022-05-15 10:03 | disposition home or self-care (01) ==
LOC: FASU-ENDO 07:42
PROVIDERS: ATTEND Internal Medicine Gastroenterology
PROC: 0DBL8ZX Excision of Transverse Colon, Via Natural or Artificial Opening Endoscopic, Diagnostic (ICD-10-PCS; principal; 2022-05-15 09:14)
DX: Z12.11 Encounter for screening for malignant neoplasm of colon (principal); Z86.010 Personal history of colon polyps; K57.30 Diverticulosis of large intestine without perforation or abscess without bleeding; D17.5 Benign lipomatous neoplasm of intra-abdominal organs
CPT/HCPCS: 88305-TC